=== PATIENT | female | born 1950 | race Caucasian/White ===

== ENCOUNTER → 2019-06-28 | Outpatient (CLI) | payer OTHER | LOC: SJCVC 13:20 → CAT 13:20 | DX: Z13.6 Encounter for screening for cardiovascular disorders (principal); E78.00 Pure hypercholesterolemia, unspecified; I25.10 Atherosclerotic heart disease of native coronary artery without angina pectoris ==

== ENCOUNTER → 2019-07-14 | Outpatient (CLI) | payer OTHER, MEDICARE | LOC: SJCVCIMAG 09:46 | DX: I73.9 Peripheral vascular disease, unspecified (principal); E78.00 Pure hypercholesterolemia, unspecified ==

== ENCOUNTER → 2019-09-13 | Outpatient (CLI) | payer OTHER, MEDICARE | LOC: SJCVC 09:43 | DX: E78.00 Pure hypercholesterolemia, unspecified (principal) ==

== ENCOUNTER → 2020-04-10 | Outpatient (CLI) | payer OTHER, MEDICARE | LOC: SJCVC 10:34 | PROVIDERS: ATTEND Internal Medicine Cardiovascular Disease | DX: R93.1 Abnormal findings on diagnostic imaging of heart and coronary circulation (principal); R00.2 Palpitations; E78.00 Pure hypercholesterolemia, unspecified; I73.9 Peripheral vascular disease, unspecified ==

== ENCOUNTER → 2021-03-03 | Outpatient (CLI) | payer OTHER, MEDICARE | LOC: SJCVCIMAG 09:48 | PROVIDERS: ATTEND Internal Medicine Cardiovascular Disease | DX: R93.1 Abnormal findings on diagnostic imaging of heart and coronary circulation (principal); E78.5 Hyperlipidemia, unspecified; R00.2 Palpitations; E78.00 Pure hypercholesterolemia, unspecified; I73.9 Peripheral vascular disease, unspecified; Z79.82 Long term (current) use of aspirin; Z79.899 Other long term (current) drug therapy; Z88.8 Allergy status to other drugs, medicaments and biological substances; Z72.89 Other problems related to lifestyle ==

== ENCOUNTER → 2021-05-05 | Outpatient (CLI) | payer OTHER, MEDICARE ==
[~2021-05-05] VITALS: Ht 170.2 cm; Wt 89.8 kg
[~2021-05-05] MED LIST: ALLEGRA ALLERG180 MG PO; CALCIUM 600 +1 EA11 PO; DETROL LA4 MG PO; IBU800 MG PO; ROSUVASTATIN CA20 MG PO; SUPER THERAVIT1 EACH PO; VITAMIN D3 COM1 EACH PO
[2021-05-05 10:39] VITALS: BP 117/74
--- NOTE | 2021-05-05 10:57 | NUR ---
Pain Clinic Assessment: 1. History of Osteoarthritis: HIPS KNEES SHOULDERS History of Rheumatoid Arthritis: Not Applicable 2. Height: 5 ft. 7 in. 170.2 cm. Weight: 198.0 lb. 0 oz. 89.812 kg. Patient's BMI: 31.0 3. Vital Signs: BP: 117/74 Pulse: 65 Resp: 16 Temp: 02 Sat: 97 ECG Mon: 4. Pain Intensity: 4-8 5. Fall Risk: Dizziness: N Needs help standing or walking: N Fallen in the last 3 months: Y Fall risk comments: 6. Patient on Blood Thinner: None 7. History of Hypertension: N 8. Opioid Therapy greater than 6 weeks: N Opiate Contract Signed: 9. Risk Assessment Tool Provided: low-0 10. Functional Assessment Tool: 41/ 11. Recreational Drug Use: Never Drug Type: Tobacco Use: Never Smoker Tobacco Type: Amount or Packs/day: How Many Years: Alcohol Use: Yes Frequency: Weekly Quant: 2
== END ==
LOC: PAIN 09:19
PROVIDERS: ATTEND Anesthesiology Pain Medicine
DX: M54.59 Other low back pain (principal); M96.1 Postlaminectomy syndrome, not elsewhere classified; M54.16 Radiculopathy, lumbar region; M79.661 Pain in right lower leg; M43.26 Fusion of spine, lumbar region; Z88.8 Allergy status to other drugs, medicaments and biological substances

== ENCOUNTER → 2021-05-15 | Outpatient (CLI) | payer OTHER, MEDICARE ==
[~2021-05-15] VITALS: Ht 170.2 cm; Wt 90.3 kg
[2021-05-15 09:09] VITALS: BP 113/64
--- NOTE | 2021-05-15 09:13 | NUR ---
Pain Clinic Assessment: 1. History of Osteoarthritis: HIPS KNEES SHOULDERS History of Rheumatoid Arthritis: Not Applicable 2. Height: 5 ft. 7 in. 170.2 cm. Weight: 199.0 lb. oz. 90.266 kg. Patient's BMI: 31.2 3. Vital Signs: BP: 113/64 Pulse: 64 Resp: 18 Temp: 02 Sat: 95 ECG Mon: 4. Pain Intensity: 4 5. Fall Risk: Dizziness: N Needs help standing or walking: N Fallen in the last 3 months: Y Fall risk comments: 6. Patient on Blood Thinner: None 7. History of Hypertension: N 8. Opioid Therapy greater than 6 weeks: N Opiate Contract Signed: 9. Risk Assessment Tool Provided: low-0 10. Functional Assessment Tool: 11. Recreational Drug Use: Never Drug Type: Tobacco Use: Never Smoker Tobacco Type: Amount or Packs/day: How Many Years: Alcohol Use: Yes Frequency: Special Occasions Quant:
== END | disposition home or self-care (01) ==
LOC: PAIN 08:16
PROVIDERS: ATTEND Anesthesiology Pain Medicine
DX: M54.16 Radiculopathy, lumbar region (principal); M48.061 Spinal stenosis, lumbar region without neurogenic claudication; M96.1 Postlaminectomy syndrome, not elsewhere classified; M19.90 Unspecified osteoarthritis, unspecified site; Z98.890 Other specified postprocedural states; Z79.899 Other long term (current) drug therapy